=== PATIENT | female | born 1990 | race Caucasian/White ===

== ENCOUNTER 2018-12-01 11:22 | Emergency (ER) | payer BC ==
[2018-12-01] MEDS ORDERED: ONDANSETRON 4 MG/2 ML VIAL IVP ONE (12:25)
[2018-12-01] MEDS ORDERED: NS 1,000 ML IV ONE (12:25)
--- NOTE | 2018-12-01 13:18 | EDPHY ---
General Time Seen by Provider: 12/01/18 13:00 Narrative: CLINICAL IMPRESSION: N/V/D Abdominal Pain; Viral gastroenteritis ASSESSMENT/PLAN: Patient is a 28-year-old female with a history of fibromyalgia and depression who presents to the emergency department with nausea, vomiting, diarrhea and generalized abdominal pain. Patient is afebrile, tired appearing however not toxic appearing. Her abdomen was soft, mild tenderness that was nonfocal and diffuse, no evidence of a surgical abdomen. CBC revealed no significant leukocytosis. Her vital signs were reviewed and there was no evidence of sepsis or serious bacterial illness. BMP grossly unremarkable- no metabolic abnormality or JUVENTINO. negative. UA with no evidence of infection. History and physical examination is most consistent with generalized abdominal pain, N/V/D which is suspect if viral in nature as roommate just had same symptoms. Workup reassuring, in light of normal laboratory and benign abdominal exam I did not feel that CT was warranted. There were no clinical findings to suggest acute appendicitis, cholecystitis, kidney stone, pancreatitis, ACS, pyelonephritis, perforated viscus, diverticulitis, hernia, AAA, mesenteric ischemia, or additional emergent intra-abdominal process. Preg neg which rules out ectopic . No pelvic complaints to suggest TOA, PID or ovarian torsion. She was given IV fluids, tylenol and zofran with improvement of her symptoms. On repeat examination the patient is well appearing, her abdomen was soft with very mild diffuse, nonfocal tenderness to palpation. The patient is well established with her primary care provider and understands the importance of close follow-up. Strict return precautions discussed- she will return for increased or unmanageable pain, development of fever, chills, recurrent vomiting , decreased urine output or other signs of dehydration or for any other new, worsening or worrisome symptoms. Patient verbalizes understanding and is in agreement with plan. DIFFERENTIAL DX: Abdominal pain in a female including but not limited to ovarian cyst, pelvic inflammatory disease, ovarian torsion, urinary tract infection, and appendicitis. ED COURSE: 1422: Case discussed with Dr. Portillo 1443: On repeat examination the patient reports that she is feeling much better , her abdomen remained soft with diffuse nonfocal tenderness to palpation and no evidence of a surgical abdomen. CHIEF COMPLAINT: Nausea, vomiting, diarrhea and generalized abdominal pain HPI: Patient is a 28-year-old female with a history of fibromyalgia and depression who presents to the emergency department with nausea, vomiting, diarrhea and generalized abdominal pain. Patient reports this morning she woke up suddenly with generalized abdominal pain, she went to the bathroom and felt better however around 7 am started to develop associated nausea, vomiting and diarrhea. Patient endorses approximately 8 episodes of vomiting and 5-6 episodes of loose/watery stools. Patient felt well going to bed last evening, no recent travel or antibiotic use. Roommate with same exact symptoms several days prior. Denies ALEGRIA, CP, SOB, melena or hematochezia. She has had no urinary complaints including dysuria, hematuria or frequency. PMH: FM, depression Pertinent Past Surgical History: Denies Family History: Not contributory Social History: Denies REVIEW OF SYSTEMS: All other systems negative Constitutional: No fever, no chills. Eyes: No discharge, vision change. ENT: No sore throat, congestion, ear pain. Cardiovascular: No chest pain, no palpitations. Respiratory: No cough, no shortness of breath. Gastrointestinal: Abdominal pain, nausea, vomiting, diarrhea. Genitourinary: No hematuria, dysuria, pelvic pain. Musculoskeletal: No joint swelling, joint pain, myalgias. Skin: No rashes, color change. Neurological: No headache, dizziness, weakness. PHYSICAL EXAM: General Appearance: Well developed, tired appearing however not toxic appearing. HENT: Normocephalic, atraumatic. Bilateral external ears are normal. Bilateral tympanic membranes are normal with pearly gupta reflex. Nares are clear, mucosa is pink. Oropharynx is clear, uvula is midline. There is no tonsillar enlargement or exudate. The dentition is normal. Eyes: PERRLA, no acute vision change, nystagmus, swelling, discharge, pain or photosensitivity. Conjunctiva pink, no pallor or injection. Neck: Supple, nontender, no lymphadenopathy, no midline pain, FROM, no meningismus. Respiratory: There are no retractions, lungs are clear to auscultation. Cardiac: Regular rate and rhythm, no murmurs or gallops. Gastrointestinal: Abdomen is soft, bowel sounds normal, no masses/hernia. Patient has diffuse, nonfocal tenderness to palpation- no rigidity, guarding or focal peritoneal findings. Neurological: Alert and oriented x 3, CN 2-12 grossly intact, normal gait no ataxia, DTR's intact, normal sensation and strength Skin: Warm, dry, no rashes, no nodules on palpation. Musculoskeletal: Extremities are symmetrical, full range of motion, no tenderness, deformity, swelling, or erythema. Psychiatric: Patient is oriented X 3, there is no agitation. MEDICAL DECISION MAKING: Patient was seen independently. Secondary supervising physician at time of evaluation was Bandar, we discussed this case and results, he did not evaluate this patient. Diagnosis: Abdominal pain, N/V/D. New, requires workup Summary: See Assessment and Plan for summary of ED visit. Clinical lab tests: ordered / reviewed. Independent visualization of images, tracing, or specimens: Yes. Decision to obtain medical records or history from someone other than the patient: No. Review / Summarize previous medical records: Yes. Discussed patient with another provider: Yes, Dr. Portillo. Patient Progress: Stable discharge. - History Smoking Status: Never smoked - Objective Vital Signs: Initial Vital Signs Temperature (C) 36.0 C 12/01/18 11:25 Blood Pressure 99/78 L 12/01/18 11:25 O2 Delivery Mode Room Air Allergies/Adverse Reactions: adhesive tape Allergy (Verified 12/01/18 11:33) Home Medications: Medication Instructions Recorded Fluticasone Nasal [Flonase Nasal 1 sprays NASAL DAILY 04/20/15 [facility] (RX)] GABAPENTIN 400 mg PO 04/20/15 DULoxetine [Cymbalta 30 MG (*)] 12/01/18 Ondansetron Odt [Zofran Odt] 4 mg PO Q8 PRN #10 tab 12/01/18 Rizatriptan Benzoate [Rizatriptan] 5 mg PO 12/01/18 Laboratory Results: Laboratory Results 12/01/18 12:25 12/01/18 12:25 Medications Given: Discontinued Medications Acetaminophen (Tylenol) 1,000 mg PO EDNOW ONE Stop: 12/01/18 14:04 Last Admin: 12/01/18 14:05 Dose: 1,000 mg Sodium Chloride (Ns) 1,000 mls @ 0 mls/hr IV EDNOW ONE; Wide Open PRN Reason: Protocol Stop: 12/01/18 12:26 Last Admin: 12/01/18 12:27 Dose: 1,000 mls Ondansetron HCl (Zofran) 4 mg IVP EDNOW ONE Stop: 12/01/18 12:26 Last Admin: 12/01/18 12:28 Dose: 4 mg Ondansetron HCl (Zofran Odt) 4 mg PO EDNOW ONE Stop: 12/01/18 14:04 Last Admin: 12/01/18 14:05 Dose: 4 mg Departure - Departure Disposition: Home, Routine, Self-Care Clinical Impression: Nausea and vomiting, Generalized abdominal pain, Diarrhea Condition: Good Instructions: Gastroenteritis (ED) Additional Instructions: DISCHARGE INSTRUCTIONS FROM YOUR DOCTOR Thank you for visiting our emergency department today. Please keep in mind that discharge from the emergency department does not mean that there is nothing wrong - it simply means that we have not identified an emergency condition that requires further evaluation or treatment in the hospital. You should always plan to follow up with primary care for re-evaluation of your condition in the next 2-3 days. Rest, push non-diuretic, non-caffeinated fluids, clear liquid diet, then a BRAT diet (bananas, rice, applesauce, toast), then slowly advance diet to normal. Attempt small frequent meals. Zofran as prescribed as needed for any recurrent nausea and/or vomiting. Schedule a follow-up appointment with your primary care physician in the next 1- 2 days for re-evaluation. Bring a copy of your test results with you to that appointment. Return for increased or unmanageable pain, new site or character of pain, flank pain, groin pain, pelvic pain, development of fever, chills, recurrent vomiting , vomiting blood or coffee grounds, diarrhea, constipation, bloody stools, black tarry stools, burning or pain with urination, bloody urine, inability to urinate, decreased urine output or other signs of dehydration, dizziness, weakness, fainting, difficulty breathing or swallowing, chest pain, or for any other new, worsening or worrisome symptoms. People present with illnesses and injuries in different ways, and it is always possible that we have missed something. You may always return for re-evaluation if symptoms worsen or if they are not improving or if you develop new/different symptoms. Again, thank you for choosing our emergency department. We hope that you feel better. Referrals: Moi Brush MD [Primary Care Provider] - As per Instructions Prescriptions: Ondansetron Odt [Zofran Odt] 4 mg PO Q8 PRN #10 tab PRN Reason: Nausea/Vomiting, Can'T Take Po
[2018-12-01 13:34] LABS: PLATELET COUNT 218 10^3/uL (150-400)
[2018-12-01] MEDS ORDERED: ACETAMINOPHEN 500 MG TAB PO ONE (14:03)
[2018-12-01] MEDS ORDERED: ONDANSETRON DISINTEGRATING 4 MG TAB PO ONE (14:03)
[2018-12-01] MEDS ORDERED: ACETAMINOPHEN 500 MG TAB ONE (14:04)
[2018-12-01 14:50] VITALS: BP 101/67
== END 2018-12-01 15:00 | disposition home or self-care (01) ==
DX: R11.2 Nausea with vomiting, unspecified (principal); R10.84 Generalized abdominal pain; R19.7 Diarrhea, unspecified; E86.9 Volume depletion, unspecified
CPT/HCPCS: 96374; J2405